=== PATIENT | male | born 1955 ===

== ENCOUNTER 2024-02-22 14:35 | Outpatient (CLI) | payer OTHER, SELFPAY | END 2024-02-22 14:36 | disposition home or self-care (01) | LOC: LKVREF 14:37 | PROVIDERS: PCP Emergency Medicine; Visit Provider Emergency Medicine | DX: I50.20 Unspecified systolic (congestive) heart failure (principal); R73.03 Prediabetes; I10 Essential (primary) hypertension | CPT/HCPCS: 83880 ==

== ENCOUNTER 2024-02-28 14:12 | Outpatient (CLI) | payer OTHER, SELFPAY | END 2024-02-28 14:13 | disposition home or self-care (01) | LOC: LKVREF 14:12 | PROVIDERS: PCP Emergency Medicine; Visit Provider Emergency Medicine | DX: I50.20 Unspecified systolic (congestive) heart failure (principal); I10 Essential (primary) hypertension | CPT/HCPCS: 83880 ==

== ENCOUNTER 2024-03-20 08:56 | Outpatient (CLI) | payer OTHER, SELFPAY | END 2024-03-20 08:57 | disposition home or self-care (01) | LOC: LKVREF 08:56 | PROVIDERS: PCP Emergency Medicine; Visit Provider Emergency Medicine | DX: I50.20 Unspecified systolic (congestive) heart failure (principal) | CPT/HCPCS: 83880 ==

== ENCOUNTER 2024-04-03 08:08 | Outpatient (CLI) | payer OTHER, SELFPAY | END 2024-04-03 08:09 | disposition home or self-care (01) | LOC: RAD 08:13 | PROVIDERS: PCP Emergency Medicine; Visit Provider Emergency Medicine | DX: I50.20 Unspecified systolic (congestive) heart failure (principal) | CPT/HCPCS: 93306 ==

== ENCOUNTER 2024-04-03 09:51 | Outpatient (CLI) | payer OTHER, SELFPAY | END 2024-04-03 09:52 | disposition home or self-care (01) | PROVIDERS: PCP Emergency Medicine; Visit Provider Emergency Medicine | DX: I50.20 Unspecified systolic (congestive) heart failure (principal); I10 Essential (primary) hypertension | CPT/HCPCS: 80048; 80061 ==

== ENCOUNTER 2024-05-01 10:39 | Outpatient (CLI) | payer OTHER, SELFPAY | END 2024-05-01 10:40 | disposition home or self-care (01) | LOC: LKVREF 10:40 | PROVIDERS: PCP Emergency Medicine; Visit Provider Emergency Medicine | DX: N40.0 Benign prostatic hyperplasia without lower urinary tract symptoms (principal); Z12.5 Encounter for screening for malignant neoplasm of prostate | CPT/HCPCS: G0103 ==

== ENCOUNTER 2025-04-20 17:44 | Emergency (ER) | payer OTHER, SELFPAY ==
--- OUTSIDE RECORDS SUMMARY | 2025-04-20 17:46 | XMS_ITS | Clinical Summary ---
Author Organization [facility] Address [facility] [place] [address] Care Team Providers Care Long Term Name Role Phone Angelita Steele MD Primary Care Provider [phone] Allergies No known active allergies Medications potassium chloride (K-TAB) 20 mEq extended-releas e tablet Take 20 mEq by mouth once daily. 03/26/2024 Active furosemide (LASIX) 20 mg tablet Take 20 mg by mouth once daily in the morning. 03/20/2024 Active Jardiance 10 mg tablet Take 10 mg by mouth once daily. 03/20/2024 Active doxazosin (CARDURA) 4 mg tablet Take 4 mg by mouth once daily. 12/02/2023 Active tamsulosin 0.4 mg capsule Take 1 Capsule by mouth once daily. 07/27/2024 Active dilTIAZem 180 mg Extended-Releas e capsuleIndicati ons:Palpitation s,PAC (premature atrial contraction) Take 1 Capsule (180 mg) by mouth once daily. 30 Capsule 5 09/30/2024 Active lisinopriL 10 mg tabletIndicatio ns:HFrEF (heart failure with reduced ejection fraction) (HC),HTN (hypertension) Take 2 Tablets (20 mg) by mouth once daily. 180 Tablet 3 09/30/2024 Active Active Problems Problem Noted Date Diagnosed Date BPH (benign prostatic hyperplasia) 04/08/2024 HTN (hypertension) 04/08/2024 HFrEF (heart failure with reduced ejection fract ion) 04/08/2024 Encounters Date Type Department Care Team Description 02/06/2025 Telephone [employer] [facility] [address] [place] [address] Rafa Sousa MD Cardiology Appointment from Last 3 Months Social History Tobacco Use Types Packs/Day Years Used Date Smoking Tobacco: Never Smokeless Tobacco: Never Tobacco Cessation:Counseling Given: Not Answered Alcohol Use Standard Drinks/Week Comments Never 0 (1 standard drink = 0.6 oz pur e alcohol) Sex and Gender Information Value Date Recorded Sex Assigned at Not on file 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 Gender Identity Not on file Sexual Orientation Not on file Last Filed Vital Signs Vital Sign Reading Time Taken Comments Blood Pressure 204/90 09/30/2024 3:30 PM CDT Pulse 65 09/30/2024 3:30 PM CDT Temperature - - Respiratory Rate - - Oxygen Saturation 99% 09/30/2024 3:30 PM CDT Inhaled Oxygen Concentration - - Weight 121.1 kg (267 lb) 09/30/2024 3:30 PM CDT Height 182.9 cm (6') 09/30/2024 3:30 PM CDT Body Mass Index 36.21 09/30/2024 3:30 PM CDT Plan of Treatment Health Maintenance Due Date Last Done Comments Tetanus booster 09/27/1967 Depression screening for age 12+ 1968 Hepatitis C screening for ag e 18-79 1974 Pneumococcal series for age 50+ (1 of 2 - PCV) 09/27/1975 Colonoscopy through age 75 2001 Lipids for age 45-75 2001 RSV vaccine for adults or (1 - Risk 50-74 years 1-dose series) 2006 Zoster (shingles) series for age 50+ (1 of 2) 2006 Medicare Wellness for age 65+ 2021 COVID-19 vaccine series (2 - 2024- season) 2025 05/01/2024 Influenza Vaccine (#1) 2025 BMI (ht and wt on same day) for age 18+ 09/30/2025 09/30/2024, 04/08/2024 Hepatitis B series for 19+ Aged Out N o longer eligible based on patient's age to complete this topic Insurance [employer] CHOICE PPO MR Care Teams Long Term Relationship Specialty Start Date End Date Angelita Steele MD [address] [place] [address] PCP - General Emergency Medicine 04/03/24
--- OUTSIDE RECORDS SUMMARY | 2025-04-20 17:46 | XMS_ITS | Clinical Summary ---
Author Organization [facility] Address [address] [place] [address] Care Team Providers Care Molder Fitting Name Role [facility], [facility] Primary Care Pro vider Rex Campos MD Unavailable Allergies Active Allergy Reactions Criticality Noted Date Comments Lisinopril Angioedema 09/17/2019 Active Problems Problem Noted Date Diagnosed Date Dermatophytosis of foot 11/24/2004 Dermatophytosis of nail 11/24/2004 Immunizations Immunization Administration Dates Next Due HepB 11/24/2004,12/30/2003,11/24/2003 TD,PF 7+ (Tenivac) 11/24/2004 Family History Medical History Relation Comments C.A.D. 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 Gender Identity Not on file Sexual Orientation Not on file Occupation Industry Job Start Date Job End Date Not on file Not on file Not on file Not on file Last Filed Vital Signs Vital Sign Reading Time Taken Comments Blood Pressure 143/88 09/17/2019 4:00 AM CDT Pulse 80 09/17/2019 4:30 AM CDT Temperature 36.6 C (97.9 F) 09/17/2019 12:08 AM CDT Respiratory Rate 16 09/17/2019 4:30 AM CDT Oxygen Saturation 98% 09/17/2019 4:30 AM CDT Inhaled Oxygen Concentration - - Weight 114.3 kg (252 lb) 09/17/2019 12:08 AM CDT Height 182.9 cm (6') 11/24/2004 9:30 AM CDT Body Mass Index - - Plan of Treatment Not on file Care Teams Molder Fitting Relationship Specialty Start Date End Date [facility] [facility] [place] [address] PCP - General 08/31/19 Rex Campos MD [address] [place] [address] Cardiovascular Disease 02/27/24
--- OUTSIDE RECORDS SUMMARY | 2025-04-20 17:46 | XMS_ITS | Encounter Summary ---
Author Organization [facility] Address [address] [place] [address] Care Team Providers Care Brim Setter Name Role Phone Unavailable Primary Care Provider Unavailabl e Encounter Details Date Type Department Care Team (Late st Contact Info) Description 05/05/2020 Lab Requisition [facility] [address] [place], [place] [id number] Dolly Cuevsa, KOBY, CERTIFIED MEDICAL CODING SPECIALIST [address] [facility] [address] [place], [place] [id number] Encounter for screening for other viral diseases Social History Tobacco Use Types Packs/Day Years Used Date Smoking Tobacco: Never Sex and Gender Information Value Date Recorded Sex Assigned at Not on file Legal Sex Male 2:13 AM CDT Gender Identity Not on file Sexual Orientation Not on file documented as of this encounter Plan of Treatment Not on file documented as of this encounter Visit Diagnoses Diagnosis Encounter for screening for other viral diseases documented in this encounter
--- OUTSIDE RECORDS SUMMARY | 2025-04-20 17:46 | XMS_ITS | Encounter Summary ---
Author Organization [facility] Address [address] [place] [address] Care Team Providers Care Medical Device Assembler Name Role Phone Unavailable Primary Care Provider Unavailabl e Encounter Details Date Type Department Care Team (Late st Contact Info) Description 08/27/2015 Consent for Procedure/Treatme nt [facility] INFORMED CONSENT RECORD Social History Tobacco Use Types Packs/Day Years Used Date Smoking Tobacco: Never Assessed Sex and Gender Information Value Date Recorded Sex Assigned at Not on file Legal Sex Male 2:13 AM CDT Gender Identity Not on file Sexual Orientation Not on file documented as of this encounter Plan of Treatment Not on file documented as of this encounter Visit Diagnoses Not on filedocumented in this encounter
--- OUTSIDE RECORDS SUMMARY | 2025-04-20 17:46 | XMS_ITS | Clinical Summary ---
Author Organization [facility] Address [address], [place] [address] Care Team Providers Care Supervisor Laboratory Name Role Phone Unavailable Primary Care Provider Unavailabl e Source Comments You are receiving this document as you are listed as the primary care provider,follow-up provider, or the patient has been referred to you for consultation.This is in compliance with the Medicare and[facility] EHR Incentive Program,which states Providers who transition their patient to another setting of careor provider of care or refers their patient to another provider of care shouldprovide summary care record for each transition of care or referral. [facility] Allergies No known active allergies Medications polyethylene glycol-electrol yte (AKA GOLYTELY) 236 G suspension Take as directed according to prep instructions given to you. Dilute solution according to instructions on package 4000 mL 0 6 Active Additional Information Patient not taking.Reported on 10/17/2022 unknown medication Indications: PN: 1 Active unknown medication Indications: PN: 0 Active doxazosin (CARDURA) 2 MG tablet Take 1 Tablet (2 mg) by mouth daily at bedtime. 3 Active lisinopril (ZESTRIL) 10 MG tablet Take 1 Tablet (10 mg) by mouth daily for 14 days. 14 Tablet 3 Active Active Problems No known active problems Social History Tobacco Use Types Packs/Day Years Used Date Smoking Tobacco: Never Smokeless Tobacco: Never Tobacco Cessation:Counseling Given: Not Answered Sex and Gender Information Value Date Recorded Sex Assigned at Not on file Legal Sex Male 2:13 AM CDT Gender Identity Not on file Sexual Orientation Not on file Last Filed Vital Signs Vital Sign Reading Time Taken Comments Blood Pressure 167/82 10/17/2022 4:05 PM CDT Pulse 76 10/17/2022 4:05 PM CDT Temperature 36.8 C (98.3 F) 10/17/2022 4:05 PM CDT Respiratory Rate 16 10/17/2022 4:05 PM CDT Oxygen Saturation 100% 10/17/2022 4:05 PM CDT Inhaled Oxygen Concentration - - Weight - - Height - - Body Mass Index - - Plan of Treatment Health Maintenance Due Date Last Done Comments Hep C Screening (Preventive Services) 1955 PSA Screening Discussion 1955 Adult Preventive Visit 1974 Cholesterol 09/27/1991 Pneumococcal Vaccine 50+ Yrs (1 of 1 - PCV) 2006 Zoster/Shingles Vaccine (1 o f 2) 2006 COVID-19 Vaccine ( - 2024-2 6 season) 2025 Influenza Vaccine (#1) 2025 1, 02/20/2019, 01/26/2014 Colonoscopy 08/26/2025 08/27/2015 DTaP/Tdap/Td Vaccine (2 - Tdap) 07/24/2029 07/25/2019, 11/24/2004 RSV Vaccine (1 - 1-dose 75+ series) 09/27/2031 HepA Vaccine Aged Out No longer eligi ble based on patient's age to complete this topic HepB Vaccine Aged Out No longer eligi ble based on patient's age to complete this topic Hib Vaccine Aged Out No longer eligi ble based on patient's age to complete this topic IPV (Polio) Vaccine Aged Out No longe r eligible based on patient's age to complete this topic MCV4 Vaccine Aged Out No longer eligi ble based on patient's age to complete this topic Meningococcal B Vaccine Aged Out No l onger eligible based on patient's age to complete this topic Procedures Procedure Name Priority Date/Time Associated Diagnosis Comments COLONOSCOPY Routine 08/27/2015 11:24 AM CDT Screen for colon cancer from Last 3 Months or Most Recently Relevant to Health Maintenance Results * COLONOSCOPY [[id number]] (08/27/2015 11:24 AM CDT) 08/27/2015 11:2 4 AM CDT Narrative [facility]) - 08/27/2015 12:02 PM CDT Patient Name: Yobany Negrete Procedure Date: 08/27/2015 11:24 AM Date of : 1955 Age: 59 Gender: Male Note Status: Finalized Procedure: Colonoscopy Indications: Screening for colorectal malignant neoplasm Providers: Noe Pena MD, Franklin Ferrer RN, Nadja Longo LPN Referring MD: Medicines: Midazolam 2 mg IV, Fentanyl 100 micrograms IV Complications: No immediate complications. Procedure: Pre-Anesthesia Assessment: - The risks and benefits of the procedure and the sedation options and risks were discussed with the patient. All questions were answered and informed consent was obtained. - Airway Examination: normal oropharyngeal airway and neck mobility. - ASA Grade Assessment: II - A patient with mild systemic disease. After I obtained informed consent, the scope was passed under direct vision. Prior to sedation, patient identity and procedure was reverified. Throughout the procedure, the patient's blood pressure, pulse, and oxygen saturations were monitored continuously. The PCF-H190L was introduced through the anus and advanced to the cecum, identified by appendiceal orifice and ileocecal valve. The quality of the bowel preparation was good. The ileocecal valve and the appendiceal orifice were photographed. Findings: Two sessile polyps were found in the sigmoid colon. The polyps were 4 to 6 mm in size. These were biopsied with a cold forceps for histology. Estimated blood loss: none. Estimated blood loss: none. Non-bleeding internal hemorrhoids were found during retroflexion. The hemorrhoids were medium-sized. The exam was otherwise without abnormality. Impression: - Two 4 to 6 mm polyps in the sigmoid colon. Biopsied. - Non-bleeding internal hemorrhoids. - The examination was otherwise normal. Recommendation: - Await pathology results. Procedure Code(s): --- Professional --- 55489, PT, Colonoscopy, flexible; with biopsy, single or multiple Diagnosis Code(s): --- Professional --- Z12.11, Encounter for screening for malignant neoplasm of colon D12.5, Benign neoplasm of sigmoid colon K64.8, Other hemorrhoids CPT copyright 2014 [employer]. All rights reserved. The codes documented in this report are preliminary and upon aligner review may be revised to meet current compliance requirements. Attending Participation: Noe Pena MD 08/27/2015 12:02 PM This report has been signed electronically. Number of Addenda: 0 Note Initiated On: 08/27/2015 11:24 AM Procedure Note Noe Pena MD - 08/27/2015 Patient Name: Yobany Negrete Procedure Date: 08/27/2015 11:24 AM Date of : 1955 Age: 59 Gender: Male Note Status: Finalized Procedure: Colonoscopy Indications: Screening for colorectal malignant neoplasm Providers: Noe Pena MD, Franklin Ferrer RN, Nadja Longo LPN Referring MD: Medicines: Midazolam 2 mg IV, Fentanyl 100 micrograms IV Complications: No immediate complications. Procedure: Pre-Anesthesia Assessment: - The risks and benefits of the procedure and the sedation options and risks were discussed with the patient. All questions were answered and informed consent was obtained. - Airway Examination: normal oropharyngeal airway and neck mobility. - ASA Grade Assessment: II - A patient with mild systemic disease. After I obtained informed consent, the scope was passed under direct vision. Prior to sedation, patient identity and procedure was reverified. Throughout the procedure, the patient's blood pressure, pulse, and oxygen saturations were monitored continuously. The PCF-H190L was introduced through the anus and advanced to the cecum, identified by appendiceal orifice and ileocecal valve. The quality of the bowel preparation was good. The ileocecal valve and the appendiceal orifice were photographed. Findings: Two sessile polyps were found in the sigmoid colon. The polyps were 4 to 6 mm in size. These were biopsied with a cold forceps for histology. Estimated blood loss: none. Estimated blood loss: none. Non-bleeding internal hemorrhoids were found during retroflexion. The hemorrhoids were medium-sized. The exam was otherwise without abnormality. Impression: - Two 4 to 6 mm polyps in the sigmoid colon.Biopsied. - Non-bleeding internal hemorrhoids. - The examination was otherwise normal. Recommendation: - Await pathology results. Procedure Code(s): --- Professional --- 07019, PT, Colonoscopy, flexible; with biopsy, single or multiple Diagnosis Code(s): --- Professional --- Z12.11, Encounter for screening for malignant neoplasm of colon D12.5, Benign neoplasm of sigmoid colon K64.8, Other hemorrhoids CPT copyright 2014 [employer]. All rights reserved. The codes documented in this report are preliminary and upon aligner review may be revised to meet current compliance requirements. Attending Participation: Noe Pena MD 08/27/2015 12:02 PM This report has been signed electronically. Number of Addenda: 0 Note Initiated On: 08/27/2015 11:24 AM Quincy Tineo MD DIGESTIVE CARE Edited Result - Final [facility] [place], [place] from Last 3 Months or Most Recently Relevant to Health Maintenance Insurance [phone] [id number] Utility Funding Utility Funding [facility]
[2025-04-20 17:53] VITALS: BP 182/93; PULSE 72; RESP 20; TEMP 37; O2SAT 99; BMI 35.9
--- NOTE | 2025-04-20 18:07 | CRLHL7_ITS ---
For Patients: As a result of the Century Cures Act, medical imaging exams and procedure reports are released immediately into your electronic medical record. You may view this report before your referring provider. If you have questions, please contact your health care provider. INDICATION: Left-sided abdominal/flank pain. TECHNIQUE: CT abdomen and pelvis acquired with 130 cc Isovue 370 IV contrast. COMPARISON: None. FINDINGS: Lower chest: Unremarkable. Liver: Unremarkable. Gallbladder and bile ducts: Cholelithiasis. No gallbladder wall thickening or pericholecystic fluid. No biliary dilatation. Pancreas: Unremarkable. Spleen: Unremarkable. Adrenal glands: Unremarkable. Kidneys: Left renal cysts. No hydronephrosis or hydroureter. No urinary calculi. Symmetric renal enhancement. GI tract: Duodenal diverticulum. No bowel obstruction. No suspicious bowel wall thickening. No CT evidence of acute appendicitis. Vasculature: No abdominal aortic aneurysm. Grossly patent vasculature. Lymph nodes: No suspicious lymphadenopathy. Peritoneum/Abdominal Wall: No ascites or pneumoperitoneum. Tiny fat containing umbilical hernia. No acute abdominal wall abnormality. Pelvis: Normal bladder. Unremarkable prostate and seminal vesicles. Bones: No acute abnormality. IMPRESSION: 1. No acute intra-abdominal/pelvic pathology. 2. Cholelithiasis without CT evidence of acute cholecystitis. Please note that all CT scans at this facility use dose modulation, iterative reconstruction, and/or weight-based dosing when appropriate to reduce radiation dose to as low as reasonably achievable. Dictated by Saad Coy MD @ 04/20/2025 7:03:42 PM (Electronically Signed)
--- NOTE | 2025-04-20 18:08 | ED.GENADULT ---
HPI - General Adult General Chief complaint: Flank Pain Stated complaint: Left Side Pain radiating to back Time Seen by Provider: 04/20/25 17:57 History of Present Illness HPI narrative: This 69-year-old male comes in reporting a left side pain for the past 3 weeks or so. He states that the pain is rather constant but can be reproduced with certain position or movements. He feels that into his back also. There is no pain radiating down either leg. He does not report any injury event or strenuous activity that triggered this. He does not have any fever, nausea, vomiting, diarrhea, or dysuria symptoms. Related Data Previous Rx's ?Medication ?Instructions ?Recorded furosemide 20 mg tablet 20 mg PO QAM #90 tabs 04/03/24 lisinopril 10 mg tablet 10 mg PO QDAY #90 tabs 04/03/24 doxazosin 4 mg tablet 4 mg PO DAILY #90 tabs 05/01/24 methylprednisolone 4 mg tablets in See Rx Instructions PO .COMPLEX 04/20/25 a dose pack (Medrol (Maykel)) #21 ea Allergies Allergy/AdvReac Type Severity Reaction Status Date / Time naproxen Allergy Intermediate Headache Verified 04/20/25 18:35 Review of Systems Status of ROS: Reports: 10 or more systems reviewed and unremarkable except as noted in History and below Narrative: Constitutional: No fevers, no weight gain or loss. Eyes: No discharge. No vision changes. HENT: No congestion, no sore throat, no ear pain. Cardiovascular: No chest pain, no palpitations. Respiratory: No shortness of breath, no wheezes, no cough. Gastrointestinal: No vomiting, no diarrhea. Left-sided abdominal pain and flank pain that radiates to his back or emanates from his back. Genitourinary: No dysuria, no hematuria. Musculoskeletal: Normal range of motion. Skin: No rashes, no pruritis. Neurological: No dizziness, weakness, sensory change, speech change. Endo/Heme/Allergies: No bruising or bleeding. No polydipsia. Pysch: no suicidality, no anxiety, no insomnia. All other systems reviewed and are negative. [facility] Medical History (Updated 04/20/25 @ 19:32 by Gigi Pace MD) Screening for prostate cancer ?Z12.5 - Encounter for screening for malignant neoplasm of prostate (ICD-10) HFrEF (heart failure with reduced ejection fraction) ?I50.20 - Unspecified systolic (congestive) heart failure (ICD-10) Family History (Updated 10/25/22 @ 11:06 by Chin Winn) Mother Coronary artery disease Sister Diabetes Uncle Diabetes Social History (Updated 04/03/24 @ 10:12 by Angelita Steele MD) Narrative: workgroup leader Exam Narrative: Exam Narrative: Constitutional: Well-developed, well-nourished, no acute distress. HEENT: Normocephalic, atraumatic. Neck: Normal range of motion. Nontender. Supple. Heart: Regular. No murmurs. Normal rate. Intact distal pulses. Lungs: Clear to auscultation. No chest discomfort. No wheezes, rhonchi, or rales. Abdomen: Normal bowel sounds. Diffuse tenderness in the left abdomen. No rebound tenderness. Genitalia: Deferred. Back: No midline tenderness. Normal range of motion. Extremities: Normal range of motion. No injury. Skin: Intact. No rash. Warm. No erythema or pallor. Neurologic: No altered sensation. No weakness. Alert and oriented. Psychiatric: No suicidality. No anxiety or depression. No insomnia. Nursing notes and vitals signs are reviewed. Const: Vital Signs, click to edit/add: Vital Signs - 24 hr 04/20/25 17:53 Temperature 98.6 F Pulse Rate [Pulse Oximeter] 72 Respiratory Rate 20 Blood Pressure [Ri ght Upper Arm] 182/93 H Pulse Oximetry 99 Oxygen Delivery Me thod Room Air Course Vital Signs Vital signs: Initial Vital Signs Temperature 98.6 F 04/20/25 17:53 Temperature Source Temporal Artery Scan 04/20/25 17:53 Pulse Rate 72 04/20/25 17:53 Respiratory Rate 20 04/20/25 17:53 Blood Pressure 182/93 H 04/20/25 17:53 Blood Pressure Mean 122 H 04/20/25 17:53 Blood Pressure Position Sitting 04/20/25 17:53 Pulse Oximetry 99 04/20/25 17:53 Oxygen Delivery Method Room Air 04/20/25 17:53 Vital Signs Temperature 98.6 F 04/20/25 17:53 Pulse Rate 72 04/20/25 17:53 Respiratory Rate 20 04/20/25 17:53 Blood Pressure 182/93 H 04/20/25 17:53 Pulse Oximetry 99 04/20/25 17:53 Oxygen Delivery Method Room Air 04/20/25 17:53 Temperature 98.6 F 04/20/25 17:53 Pulse Rate 72 04/20/25 17:53 Respiratory Rate 20 04/20/25 17:53 Blood Pressure 182/93 H 04/20/25 17:53 Pulse Oximetry 99 04/20/25 17:53 Oxygen Delivery Method Room Air 04/20/25 17:53 Medical Decision Making MDM Narrative Medical decision making narrative: This patient comes in with pain in his left abdomen that seems to be connected with pain in his back. He arrives with normal vital signs. His exam is also normal except for the stated pain. His abdominal exam is negative for rebound tenderness. He has normal bowel sounds. I did discuss lab and imaging studies and the patient prefers to have imaging to rule out any problem. An IV is established and a CT scan with IV contrast is obtained. This shows no acute findings to explain his pain. He does have stones in his gallbladder but these are asymptomatic. Additionally his labs are also returning if with reassuring results. It seems that this patient's pain is more musculoskeletal or perhaps some nerve impingement. He states that there are certain positions that worsen and others that alleviate his pain. He is okay to be discharged home. I did provide [facility] prescriptions for Toradol and Flexeril and a prescription for Medrol Dosepak from his preferred pharmacy. Lab Data Labs: Lab Results 04/20/25 04/20/25 Range/Units 18:16 18:20 WBC 5.47 (4.50-11.00) K/uL RBC 4.85 (4.30-5.90) m/uL Hgb 13.2 L (13.5-17.5) gm/dL Hct 41.1 (37.0-53.0) % MCV 85 (80-100) fL MCH 27 (26-34) pg MCHC 32 (32-36) gm/dL RDW Coeff of Hang 12.7 (11.5-15.5) % Plt Count 158 (140-440) K/uL Neut % (Auto) 44.1 (42.0-72.0) % Lymph % (Auto) 44.2 H (20-44) % [place] % (Auto) 8.6 (0.0-11.0) % Eos % (Auto) 2.7 (0.0-7.0) % Baso % (Auto) 0.2 (0.0-3.0) % Neut # (Auto) 2.41 (1.7-7.0) K/uL Lymph # (Auto) 2.40 (0.90-2.90) K/uL [place] # (Auto) 0.50 (0.00-0.90) K/UL Eos # (Auto) 0.15 (0.00-0.50) K/uL Baso # (Auto) 0.01 (0.00-0.30) K/uL Abs Immat Gran (auto) 0.01 (0.00-0.30) K/uL Imm/Tot Granulo (auto) 0.2 % Sodium 136 (135-149) mmol/L Potassium 3.6 (3.6-5.1) mmol/L Chloride 99 (96-114) mmol/L Carbon Dioxide 26 (20-32) mmol/L Anion Gap 11 (7-15) mEq/L BUN 14 (7-30) mg/dL Creatinine 1.0 (0.5-1.5) mg/dL Estimated Creat Clear 77.60 Estimated GFR 82 ml/min Glucose 136 H (60-115) mg/dL Calcium 8.8 (8.4-10.6) mg/dL POC Creatinine 1.2 (0.6-1.3) mg/dl Imaging Data CT scan - abdomen: Radiologist's impression: 1. No acute intra-abdominal/pelvic pathology. 2. Cholelithiasis without CT evidence of acute cholecystitis. Discharge Plan Discharge Clinical Impression: Flank pain Patient Disposition: Home, Self-Care Condition: Stable Additional Instructions: Take medications as needed and directed. Follow up with primary physician for ongoing management. Return if worsening. Prescriptions: New methylprednisolone [Medrol (Maykel)] 4 mg tablets,dose pack See Rx Instructions .ROUTE .COMPLEX Qty: 21 0RF Rx Instructions: orally per package directions No Action furosemide 20 mg tablet 20 mg PO QAM Qty: 90 3RF lisinopril 10 mg tablet 10 mg PO QDAY Qty: 90 3RF doxazosin 4 mg tablet 4 mg PO DAILY Qty: 90 3RF Follow Up/Referrals: Gigi Hamilton MD [Primary Care Provider, [facility]] Stand Alone Forms: [facility] Info Instructions
[2025-04-20 18:31] LABS: Hematocrit* 41.1 % (37.0-53.0); Hemoglobin* 13.2 gm/dL (13.5-17.5); Immature Granulocytes Abs Auto 0.01 K/uL (0.00-0.30); Immature Granulocytes Pct Auto 0.2 %; Mean Corpuscular HGB Conc 32 gm/dL (32-36); Mean Corpuscular Hemoglobin 27 pg (26-34); Mean Corpuscular Volume 85 fL (80-100); RDW Coefficient of Variation % 12.7 % (11.5-15.5); Red Blood Count* 4.85 m/uL (4.30-5.90); White Blood Count* 5.47 K/uL (4.50-11.00)
[2025-04-20 18:31] LABS: Creatinine, Point-of-Care* 1.2 mg/dl (0.6-1.3)
[2025-04-20 18:33] LABS: Lymphocytes Absolute Auto 2.40 K/uL (0.90-2.90); Slide Review Reflex No
[2025-04-20 18:45] LABS: Chloride* 99 mmol/L (96-114); Potassium* 3.6 mmol/L (3.6-5.1); Sodium* 136 mmol/L (135-149)
[2025-04-20 18:48] LABS: Anion Gap 11 mEq/L (7-15); Blood Urea Nitrogen* 14 mg/dL (7-30); Calcium* 8.8 mg/dL (8.4-10.6); Carbon Dioxide* 26 mmol/L (20-32); Creatinine* 1.0 mg/dL (0.5-1.5); Est. Creatinine Clearance* 77.60; Estimated Glomerular Filt Rate 82 ml/min; Glucose* 136 mg/dL (60-115)
== END 2025-04-20 19:43 | disposition home or self-care (01) ==
PROVIDERS: Emergency Provider Emergency Medicine Emergency Medical Services; PCP Family Medicine
DX: R10.A2 Flank pain, left side (principal); K80.20 Calculus of gallbladder without cholecystitis without obstruction
CPT/HCPCS: 36415; 74177; 80048; 82565; 85025; 99284; 99285; Q9967